=== PATIENT | female | born 1995 | race Caucasian/White ===

== ENCOUNTER 2021-09-10 11:01 | Outpatient (CLI) | payer SELFPAY ==
[~2021-09-10] VITALS: Ht 167.6 cm; Wt 62.7 kg
--- NOTE | 2021-09-10 11:15 | NUR ---
Pt arrived on unit via wheelchair and with complaints of contractions since this morning. Pt denies any leaking of fluid or vaginal bleeding and reports normal movement. Pt also reports feeling increased pain when baby is active. EFM and toco monitors started. Vital signs WNL. Dr. Ohara notified. See physician notification for details.
[2021-09-10] MEDS ORDERED: PRENATAL (11:28)
[2021-09-10] MEDS ORDERED: ASPIRIN 81M81 MG/TA2 PO (11:28)
[2021-09-10] MEDS ORDERED: PROMETRIUM200 M1 PO (11:29)
[2021-09-10 12:00] VITALS: BP 118/58; PULSE 90; TEMP 97.8
== END 2021-09-10 12:18 | disposition home or self-care (01) ==
LOC: LDRO 11:01
DX: O47.02 False labor before 37 completed weeks of gestation, second trimester (principal); Z3A.27 27 weeks gestation of pregnancy

== ENCOUNTER 2021-09-22 19:46 | Emergency (ER) | payer MEDICAID ==
[~2021-09-22] VITALS: Ht 167.6 cm; Wt 66.8 kg
[~2021-09-22 19:46] MED LIST: ASPIRIN 81M81 MG/TA2 PO; PRENATAL; PROMETRIUM200 M1 PO
[2021-09-22 19:52] VITALS: TEMP 98.9
--- NOTE | 2021-09-22 19:58 | NUR ---
1957- THIS RN TO BEDSIDE TO START 20 MINUTE NST STRIP ON PATIENT IN ER FOR N/V AND FATIGUE. PATIENT REPORTS MOVEMENT, BUT SLIGHTLY DECREASED SINCE START OF HER FEVER. AUDIBLE MOVEMENT NOTED ON FHR MONITOR. PATIENT DENIES LOF OR BLEEDING AND REPORTS SOME MILD CRAMPING/CONTRACTIONS RANDOMLY TODAY. CURRENTLY FHR 130S AND MODERATE VARIBILITY. NO CONTRACTIONS NOTED YET ON MONITOR.
--- NOTE | 2021-09-22 20:24 | NUR ---
THIS RN TO BEDSIDE. 20 MINUTES OF FHR STRIP COMPLETED. PATIENT VOICED FEELING KICKS WHILE HERE. FHR 130S WITH ACCELERATIONS. STRIP CHARTED AND GIVEN TO ER NURSE. PATIENT DENIES FURTHER NEEDS.
[2021-09-22 20:26] LABS: MEAN CELL VOLUME 88 fl (80.0-100.0); MEAN CORPUSCULAR HEMOGLOBIN 31 pg (27-31); MEAN CORPUSCULAR HGB CONC 35 g/dl (33.0-37.0); MEAN PLATELET VOLUME 10.2 fl (7.4-10.4); PLATELET COUNT 259 K/mm3 (130-400); RED BLOOD COUNT 3.59 M/mm3 (4.10-5.30); REDCELL DISTRIBUTION WIDTH-CV 13.1 % (11.5-14.5)
[2021-09-22 20:28] LABS: HEMATOCRIT 31.6 % (37.0-47.0)
[2021-09-22 20:42] LABS: ALBUMIN 2.9 gm/dL (3.5-5.0); BILIRUBIN,TOTAL 0.1 mg/dL (0.2-1.2); C-REACTIVE PROTEIN 0.48 mg/dL (0.00-0.50); CALCIUM 8.8 mg/dL (8.4-10.2); CREATININE, serum 0.53 mg/dL (0.57-1.11); POTASSIUM 3.5 mmol/L (3.5-4.5); TOTAL PROTEIN 6.7 gm/dL (6.2-8.1)
[2021-09-22 20:55] LABS: COLLECTION METHOD CLEAN CATCH
[2021-09-22 21:01] LABS: BAND 8 % (0-10); LYMPHOCYTE 29 % (20.0-51.0); NEUTROPHILS 62 % (42.0-75.2); PLATELET ESTIMATE NORMAL (NORMAL)
[2021-09-22 21:06] LABS: AMORPHOUS CRYSTAL Present (NOT PRESENT); MUCOUS Present (NOT PRESENT); PH 7 (5-8); URINE APPEARANCE Cloudy (CLEAR/HAZY); URINE BACTERIA Rare /hpf (NONE SEEN); URINE BILIRUBIN Negative (NEGATIVE); URINE BLOOD Negative (NEGATIVE); URINE COLOR Yellow (YELLOW); URINE GLUCOSE 1+ (NEGATIVE); URINE KETONE Negative (NEGATIVE); URINE LEUKOCYTE ESTERASE Negative (NEGATIVE); URINE NITRATE Negative (NEGATIVE); URINE PROTEIN(semi-quant) Negative (NEGATIVE); URINE RBC 0-2 /hpf (0-2); URINE UROBILINOGEN Negative (NEGATIVE)
[2021-09-22 21:16] VITALS: PULSE 87
[2021-09-22] MEDS ORDERED: OMNICEF 300MG300 MG PO (21:37)
[2021-09-22 21:50] VITALS: BP 122/62
== END 2021-09-22 21:50 | disposition home or self-care (01) ==
LOC: COL.ER 19:46
PROVIDERS: Family Medicine
DX: O99.283 Endocrine, nutritional and metabolic diseases complicating pregnancy, third trimester (principal); E86.0 Dehydration; O99.513 Diseases of the respiratory system complicating pregnancy, third trimester; J32.9 Chronic sinusitis, unspecified; Z91.040 Latex allergy status; Z3A.29 29 weeks gestation of pregnancy; Z20.822 Contact with and (suspected) exposure to COVID-19
CPT/HCPCS: J2405; J7120

== ENCOUNTER 2021-10-01 18:29 | Outpatient (CLI) | payer OTHER, MEDICAID ==
[~2021-10-01] VITALS: Ht 167.6 cm; Wt 71.4 kg
[2021-10-01] VITALS (8 sets, daily range): BP systolic 95–114; BP diastolic 52–65; PULSE 78–97; TEMP 97.3–98.2
[~2021-10-01 18:29] MED LIST changes: +OMNICEF 300MG300 MG PO
--- NOTE | 2021-10-01 18:35 | NUR ---
183- 26 yo L0 30.4 wga arrives to OB, ambulatory, accompanied by spouse, Monik c/o ctx x2 days. RN escorted to room LDR5 and instructions given to pt. Oriented to room. Dr. Putnam had already spoke with pt and called up to OB floor and gave orders to draw a CBC, CMP, and obtain a clean catch UA. Pt reports +FM, +CTX, -VB,-LOF. 1843- EFM and toco applied. Pt reports she was seen at the [facility] yesterday for ctx and was given 1L of fluid, 1gram of Tylenol and a spec exam showed the pt to be closed. Pt reports she took some Tylenol this afternoon around 1400 but has not helped much with the pain. Pt rates the ctx pain 7/10, cramping in abdomen and back. VSS and afebrile. 1899- #18g to Rt AC, x1 attempt, successful, labs drawn w/ IV start. Pt tolerated well w/o any complaints. IV started by Katerine Goyal RN. 1904- Attempted to perform vaginal exam but pt unable to tolerate and refuses. Pt very tearful and c/o pain with exam so unable to determine dilation. FHTs reactive. Pt gary about every 2-3 minutes consistently and palpate mild-moderate. Pt has a hx of PPROM at 22 wga and stillbirth and x2 SABs. Pt appears very anxious with being in hospital and c/o trauma r/t her delivery in [place]. 1939- Dr. Putnam called and orders given to administer Tylenol 1 gram, Betamethasone 12 mg IM and Procardia 20 mg po. Notified that pt is ctx every 2-3 minutes. 1944- POC d/w pt and spouse. Pt is very hesistant to take medications. Purpose of each medication and side effects of medicine was reviewed with pt and spouse. Pt still unsure if she wants to take medications. Explained to the pt I would let her discuss plan with her and to let me know how they would like to proceed. 1949- RN called to room and pt wants to know risks and benefits of medications again. Educated pt on Betamethasone and Procardia. Pt hesistant to take Procardia because she reports she has a hx of vasovagel syncope. I explained to the pt that her BP is stable at this time but we can monitor it every 15 minutes to make sure her BP is staying stable but that the Procardia could help her uterus to relax. Pt agrees to take medicines but declines the Tylenol. 1955- Up to BR 2009- Procardia 20 mg po given and Betamethasone IM inj #1 given. 2044- Pt rates the pain 6/10 but reports she is still gary frequently. 2104- RN called to room. Pt c/o feeling very weak and dizzy all of a sudden. She states that she feels very warm.VSS and temp 97.3. HOB lowered. 2115- Dr. Putnam updated that pt is continuing to contract every 2-3 minutes even after Procardia administration. Pt is very nervous about delivering early and would like to be transferred. Pt is very tearful and scared to have another baby pre-term and it not survive. Dr. Putnam is en route to hospital to discuss POC with pt and her spouse. 2124- RN called to room. Pt and spouse concerned that BP is 95/52. Explained to pt that the Procardia can lower BP but her BP at this time is still stable and not too low. I let the pt know that Dr. Putnam would be here shortly and if he thinks her BP is too low we can do IV fluids. 2134- Up to BR. 2141- Pt's comes out of room yelling," she has blood coming out of her vagina!" RN to room and pt is crying and very anxious. Pt said that she felt something and grabbed and paper towel and wiped and there was blood. Dark, red blood noted on paper towel. Dr. Putnam at bs 2143- US at bs. US confirms fetus is vertex and good amount of fluid around baby. Dr. Putnam d/w pt and spouse about transfer to tertiary center. Pt agrees to transfer. 2199- Dr. Putnam at bs and speculum exam performed and cervix appears closed, no pooling and old, dark blood in the vaginal vault but no active bleeding noted. 2221- at bs. Pt has been accepted by a physician at [facility] in [place], [place] and will be transferred via ambulance. 2236- Ampicillin 2 grams IV started 2309- Ampicillin infusion completed and SL. 2312- EMS arrived and at bs. Report given to Rosas. Monitors removed and pt up to BR. Pt does not notice any bleeding at this time when she gets up to the BR. 2318- Pt left w/ EMS via [facility]. 2327- Report called to receiving nurse, Ayanna.
[2021-10-01 19:15] LABS: COLLECTION METHOD CLEAN CATCH
[2021-10-01 19:23] LABS: MEAN CELL VOLUME 89 fl (80.0-100.0); MEAN CORPUSCULAR HEMOGLOBIN 31 pg (27-31); MEAN CORPUSCULAR HGB CONC 35 g/dl (33.0-37.0); MEAN PLATELET VOLUME 10.5 fl (7.4-10.4); PLATELET COUNT 290 K/mm3 (130-400); RED BLOOD COUNT 3.91 M/mm3 (4.10-5.30); REDCELL DISTRIBUTION WIDTH-CV 13.2 % (11.5-14.5)
[2021-10-01 19:28] LABS: PH 8 (5-8); SQUAMOUS EPITHELIAL 0-2 /hpf (0-10); URINE APPEARANCE Hazy (CLEAR/HAZY); URINE BACTERIA None Seen /hpf (NONE SEEN); URINE BILIRUBIN Negative (NEGATIVE); URINE BLOOD Negative (NEGATIVE); URINE COLOR Straw (YELLOW); URINE GLUCOSE Negative (NEGATIVE); URINE KETONE Negative (NEGATIVE); URINE LEUKOCYTE ESTERASE Negative (NEGATIVE); URINE NITRATE Negative (NEGATIVE); URINE PROTEIN(semi-quant) Negative (NEGATIVE); URINE RBC 0-2 /hpf (0-2); URINE UROBILINOGEN Negative (NEGATIVE)
[2021-10-01 19:29] LABS: HEMATOCRIT 34.8 % (37.0-47.0)
[2021-10-01 19:37] LABS: ALBUMIN 3.3 gm/dL (3.5-5.0); BILIRUBIN,TOTAL 0.2 mg/dL (0.2-1.2); CALCIUM 9.1 mg/dL (8.4-10.2); CREATININE, serum 0.55 mg/dL (0.57-1.11); POTASSIUM 3.8 mmol/L (3.5-4.5); TOTAL PROTEIN 7.2 gm/dL (6.2-8.1)
[2021-10-01 19:44] LABS: BAND 3 % (0-10); BASOPHIL 2 % (0-2); LYMPHOCYTE 27 % (20.0-51.0); NEUTROPHILS 64 % (42.0-75.2); PLATELET ESTIMATE NORMAL (NORMAL)
[2021-10-01] MEDS ORDERED: PROAIR HFA0.09 MG/AC (20:03)
== END 2021-10-01 23:18 | disposition critical access hospital (66) ==
LOC: LDRO 18:29 → LDR 18:43 → LDRO 23:18
PROVIDERS: Obstetrics & Gynecology
DX: O47.03 False labor before 37 completed weeks of gestation, third trimester (principal); Z3A.30 30 weeks gestation of pregnancy
CPT/HCPCS: J0290; J0702; J7120

== ENCOUNTER 2021-10-17 12:58 | Outpatient (CLI) | payer OTHER, MEDICAID ==
[~2021-10-17] VITALS: Ht 167.6 cm; Wt 71.4 kg
[~2021-10-17 12:58] MED LIST changes: +PROAIR HFA0.09 MG/AC
--- NOTE | 2021-10-17 13:05 | NUR ---
1305-32.6 G4L0 Patient ambulatory to LR 6 with complaint of contractions irregularly since 0800. Denies LOF or VB. Reports good FM. Assisted into gown and placed on EFM. Reactive FHR. VSS. 1325-Updated Dr. Ball, see MD notification. Orders recieved by MD. Discussed MD orders with patient. Patient desires to leave and follow up at [facility] in [place] where she can have the fibronectin testing done. 1332-Patient off EFM. Reviewed Discharge Instructions. Patient reports she is going to leave and go directly to [facility]. Denies questions 1345-Ambulatory off Unit.
[2021-10-17 13:32] VITALS: BP 120/76; PULSE 86; TEMP 98.2
== END 2021-10-17 13:45 | disposition home or self-care (01) ==
LOC: LDRO 12:58
DX: O47.03 False labor before 37 completed weeks of gestation, third trimester (principal); Z3A.32 32 weeks gestation of pregnancy

== ENCOUNTER 2021-11-02 17:48 | Outpatient (CLI) | payer OTHER, MEDICAID ==
--- NOTE | 2021-11-02 18:00 | NUR ---
Presents to L&D per wheelchair, accompanied by significant other. Patient c/o gush of fluid which soaked her underwear and panty liner. States she did not bring these things with her, and changed into dress prior to leaving house, in case she delivered this evening. Reports no color to fluid, no odor. States she has been losing her mucous plug twice daily, has been seen by MFM with history of funneling of cervix, but has since resolved per patient report. Denies any current leaking of fluid. This reported to . Orders received to not do amnisure, but rather amnitrace with SVE.
[2021-11-02 18:30] VITALS: BP 117/71; PULSE 85
--- NOTE | 2021-11-02 19:15 | NUR ---
1953- MONITORING DC'D, PT MAY DC HOME PER DR. FREEMAN. DISCUSSED REASONS TO RETURN TO THE UNIT, INSTRUCTED PT THAT SHE MAY CALL WITH CONCERNS OR QUESTIONS. QUESTIONS ENCOURAGED AND ANSWERED. PT VERBALIZED UNDERSTANDING. 1914- PT OFF THE UNIT AMBULATORY WITH SPOUSE FOR HOME.
== END 2021-11-02 19:15 | disposition home or self-care (01) ==
LOC: LDRO 17:48 → LDR 17:55 → LDRO 19:15
DX: Z34.93 Encounter for supervision of normal pregnancy, unspecified, third trimester (principal); Z3A.35 35 weeks gestation of pregnancy
CPT/HCPCS: OP

== ENCOUNTER 2022-11-17 07:32 | Outpatient (CLI) | payer OTHER, MEDICAID ==
[~2022-11-17] VITALS: Ht 167.6 cm; Wt 61.4 kg
[~2022-11-17 07:32] MED LIST changes: -PROAIR HFA0.09 MG/AC; +PROAIR HFA0.09 MG/AC IH
[2022-11-17 08:50] VITALS: BP 109/69; PULSE 70; TEMP 98.7
[2022-11-17] MEDS ORDERED: MULTI VITAMINS1 TAB PO (09:49)
[2022-11-17] MEDS ORDERED: INDERAL 20MG20 MG PO (09:49)
[2022-11-17] MEDS ORDERED: D3-5050000 IU PO (09:50)
[2022-11-20 00:41] LABS: ADRENOCORTICOTROPIC HORMONE 18 pg/mL (5-27)
== END 2022-11-17 10:07 ==
LOC: EUO 07:32
PROVIDERS: Internal Medicine Interventional Cardiology
DX: R00.2 Palpitations (principal)
CPT/HCPCS: J0834